=== PATIENT | male | born 1955 | race Caucasian/White ===

== ENCOUNTER 2017-10-23 14:11 | Day surgery (SDC) | payer OTHER ==
[2017-10-23] MEDS ORDERED: FENTAnyl 50 MCG/ML VIAL (18:45)
[2017-10-23] MEDS ORDERED: MIDAZOLAM 1 MG/ML 2 ML INJ ×3 (18:45)
== END 2017-10-23 19:58 | disposition home or self-care (01) ==
LOC: SDS 14:11 → GIL 14:11
DX: Z12.11 Encounter for screening for malignant neoplasm of colon (principal); D12.2 Benign neoplasm of ascending colon; D12.7 Benign neoplasm of rectosigmoid junction; K57.90 Diverticulosis of intestine, part unspecified, without perforation or abscess without bleeding; K64.8 Other hemorrhoids
CPT/HCPCS: 45380; 88305